=== PATIENT | female | born 1965 | race Caucasian/White ===

== ENCOUNTER → 2019-05-18 | Outpatient (CLI) | payer OTHER ==
[~2019-05-18] VITALS: Ht 177.8 cm; Wt 94.3 kg
[~2019-05-18] MED LIST: CARBOPLATIN IV ONE; DEXA4TAB66 PO; DIPHENHYDRAMINE 50 MG/ML, 1ML IVPush ONE; FAMOTIDINE 20 MG/2 ML IVPush ONE; FILTER 0.22 MICRON IV ONE; ONDA4TAB7 PO; ONDANSETRON 16 MG, DEXAMETHASONE 12 MG in SODIUM CHLORIDE 0.9% 50 ML IVPB ONE; PACLITAXEL 350 MG in SODIUM CHLORIDE 0.9% 500 ML IV ONE; SODIUM CHLORIDE 0.9% IV ONE
[2019-05-18 10:19] VITALS: BP 123/81
== END | disposition home or self-care (01) ==
LOC: INFUSION 08:11
PROVIDERS: ATTEND Specialist
DX: Z51.11 Encounter for antineoplastic chemotherapy (principal); C54.1 Malignant neoplasm of endometrium; Z87.891 Personal history of nicotine dependence
CPT/HCPCS: 96367; 96375; 96413; 96415; 96417; J1100; J1200; J2405; J3490; J7040; J7050; J9045; J9267

== ENCOUNTER 2019-06-08 08:50 | Outpatient (CLI) | payer OTHER ==
[~2019-06-08] VITALS: Ht 177.8 cm; Wt 93.5 kg
[~2019-06-08 08:50] MED LIST changes: -CARBOPLATIN IV ONE; -DIPHENHYDRAMINE 50 MG/ML, 1ML IVPush ONE; -FAMOTIDINE 20 MG/2 ML IVPush ONE; -FILTER 0.22 MICRON IV ONE; -ONDANSETRON 16 MG, DEXAMETHASONE 12 MG in SODIUM CHLORIDE 0.9% 50 ML IVPB ONE; -PACLITAXEL 350 MG in SODIUM CHLORIDE 0.9% 500 ML IV ONE; -SODIUM CHLORIDE 0.9% IV ONE
[2019-06-08] MEDS ORDERED: ONDANSETRON 16 MG, DEXAMETHASONE 12 MG in SODIUM CHLORIDE 0.9% 50 ML IVPB ONE (09:30)
[2019-06-08] MEDS ORDERED: DIPHENHYDRAMINE 50 MG/ML, 1ML IVPush ONE (09:30)
[2019-06-08] MEDS ORDERED: FAMOTIDINE 20 MG/2 ML IVPush ONE (09:30)
[2019-06-08] MEDS ORDERED: PROCHLORPERAZINE 10MG TABLET PO PRN (10:00)
[2019-06-08] MEDS ORDERED: PACLITAXEL 350 MG in SODIUM CHLORIDE 0.9% 500 ML IV ONE (10:00)
[2019-06-08] MEDS ORDERED: FILTER 0.22 MICRON IV ONE (10:00)
[2019-06-08 10:37] VITALS: BP 135/74
[2019-06-08] MEDS ORDERED: CARBOPLATIN IV ONE ×2 (12:00→13:00)
[2019-06-08] MEDS ORDERED: SODIUM CHLORIDE 0.9% IV ONE ×2 (12:00→13:00)
== END 2019-06-08 23:59 | disposition home or self-care (01) ==
LOC: INFUSION 08:50
PROVIDERS: ATTEND Specialist
DX: Z51.11 Encounter for antineoplastic chemotherapy (principal); C54.1 Malignant neoplasm of endometrium; Z87.891 Personal history of nicotine dependence
CPT/HCPCS: 96367; 96375; 96413; 96415; 96417; J1100; J1200; J2405; J3490; J7040; J7050; J9045; J9267

== ENCOUNTER → 2019-06-29 | Outpatient (CLI) | payer OTHER ==
[~2019-06-29] VITALS: Ht 177.8 cm; Wt 92.5 kg
[~2019-06-29] MED LIST changes: +CARBOPLATIN IV ONE; +DIPHENHYDRAMINE 50 MG/ML, 1ML IVPush ONE; +FAMOTIDINE 20 MG/2 ML IVPush ONE; +FILTER 0.22 MICRON IV ONE; +ONDANSETRON 16 MG, DEXAMETHASONE 12 MG in SODIUM CHLORIDE 0.9% 50 ML IVPB ONE; +PACLITAXEL 350 MG in SODIUM CHLORIDE 0.9% 500 ML IV ONE; +PROCHLORPERAZINE 10MG TABLET PO PRN; +SODIUM CHLORIDE 0.9% IV ONE
[2019-06-29 07:50] VITALS: BP 108/78
== END | disposition home or self-care (01) ==
LOC: INFUSION 07:51
PROVIDERS: ATTEND Specialist
DX: Z51.11 Encounter for antineoplastic chemotherapy (principal); C54.1 Malignant neoplasm of endometrium; Z87.891 Personal history of nicotine dependence
CPT/HCPCS: 96367; 96375; 96413; 96415; 96417; J1100; J1200; J2405; J3490; J7040; J7050; J9045; J9267

== ENCOUNTER → 2019-07-20 | Outpatient (CLI) | payer OTHER ==
[~2019-07-20] VITALS: Ht 177.8 cm; Wt 92.2 kg
[~2019-07-20] MED LIST changes: +PACLITAXEL IV ONE
[2019-07-20 08:00] VITALS: BP 96/64
== END | disposition home or self-care (01) ==
LOC: INFUSION 07:43
PROVIDERS: ATTEND Specialist
DX: Z51.11 Encounter for antineoplastic chemotherapy (principal); C54.1 Malignant neoplasm of endometrium; Z87.891 Personal history of nicotine dependence
CPT/HCPCS: 96367; 96375; 96413; 96415; 96417; J1100; J1200; J2405; J3490; J7040; J7050; J9045; J9267

== ENCOUNTER 2019-08-09 08:44 | Outpatient (CLI) | payer OTHER ==
[~2019-08-09 08:44] MED LIST changes: -CARBOPLATIN IV ONE; -DIPHENHYDRAMINE 50 MG/ML, 1ML IVPush ONE; -FAMOTIDINE 20 MG/2 ML IVPush ONE; -FILTER 0.22 MICRON IV ONE; -ONDANSETRON 16 MG, DEXAMETHASONE 12 MG in SODIUM CHLORIDE 0.9% 50 ML IVPB ONE; -PACLITAXEL 350 MG in SODIUM CHLORIDE 0.9% 500 ML IV ONE; -PACLITAXEL IV ONE; -PROCHLORPERAZINE 10MG TABLET PO PRN; -SODIUM CHLORIDE 0.9% IV ONE
[2019-08-09] MEDS ORDERED: LIDOCAINE 1%, 10ML ONE (09:03)
== END 2019-08-09 23:59 | disposition home or self-care (01) ==
LOC: RAD 08:44
PROVIDERS: ATTEND Nurse Practitioner Acute Care
DX: R18.8 Other ascites (principal); Z79.899 Other long term (current) drug therapy
CPT/HCPCS: 49083

== ENCOUNTER → 2019-09-08 | Outpatient (CLI) | payer OTHER | END | disposition home or self-care (01) | LOC: ROC 07:29 | PROVIDERS: ATTEND Radiology Radiation Oncology | DX: C54.1 Malignant neoplasm of endometrium (principal); R18.8 Other ascites | CPT/HCPCS: 99214; G0463 ==

== ENCOUNTER 2019-12-15 09:46 | Outpatient (CLI) | payer OTHER, MEDICAID ==
[~2019-12-15 09:46] MED LIST changes: +RIVA10TA2 PO
== END 2019-12-15 23:59 | disposition home or self-care (01) ==
LOC: ROC 09:46
PROVIDERS: ATTEND Radiology Radiation Oncology
DX: Z08 Encounter for follow-up examination after completed treatment for malignant neoplasm (principal); Z85.858 Personal history of malignant neoplasm of other endocrine glands
CPT/HCPCS: 99213; G0463